=== PATIENT | female | born 1935 | race Caucasian/White ===

== ENCOUNTER → 2016-10-23 | Outpatient (CLI) | payer MEDICARE, OTHER | END | disposition home or self-care (01) | LOC: GMAB 14:15 | PROVIDERS: ATTEND Family Medicine | DX: D63.1 Anemia in chronic kidney disease (principal) ==

== ENCOUNTER → 2017-04-09 | Outpatient (CLI) | payer MEDICARE, OTHER | END | disposition home or self-care (01) | LOC: GMAB 10:28 | PROVIDERS: ATTEND Family Medicine | DX: D63.1 Anemia in chronic kidney disease (principal); E03.9 Hypothyroidism, unspecified ==

== ENCOUNTER → 2017-04-09 | Outpatient (CLI) | payer MEDICARE, OTHER | END | disposition home or self-care (01) | LOC: GMAB 16:22 | PROVIDERS: ATTEND Family Medicine | DX: R06.02 Shortness of breath (principal) ==

== ENCOUNTER → 2017-06-12 | Outpatient (CLI) | payer MEDICARE, OTHER | LOC: RESP 06-11 11:51 | PROVIDERS: ATTEND Internal Medicine Cardiovascular Disease | DX: R53.1 Weakness (principal) ==

== ENCOUNTER → 2017-11-18 | Outpatient (CLI) | payer MEDICARE, OTHER | LOC: GMAB 16:52 | PROVIDERS: ATTEND Family Medicine | DX: D64.9 Anemia, unspecified (principal) ==

== ENCOUNTER → 2018-03-25 | Outpatient (CLI) | payer MEDICARE, OTHER | LOC: GMAE 14:35 | PROVIDERS: ATTEND Family Medicine | DX: D64.9 Anemia, unspecified (principal); E03.9 Hypothyroidism, unspecified ==

== ENCOUNTER 2018-08-27 16:15 | Inpatient (IN) | payer MEDICARE, OTHER ==
[2018-08-27] MEDS ORDERED: HYDROcodone 5MG/APAP 325MG 1 EA TAB PO ONE (17:15)
--- NOTE | 2018-08-27 17:26 | ED.PDOC ---
History of Present Illness - General Chief Complaint: Fever Stated Complaint: knee swelling, fever Time Seen by Provider: 08/27/18 16:35 Source: patient, family Exam Limitations: no limitations - History of Present Illness Initial Comments: PT SENT OVER FROM THE CLINIC FOR EVALUATION OF FEVER, COUGH AND KNEE SWELLING. PT REPORTS HAVING A COUGH PRODUCTIVE OF YELLOW AND GREEN SPUTUM FOR THE PAST WEEK ASSOCIATED WITH INTERMITTENT FEVER. PT REPORTS INTERMITTENT SHORTNESS OF BREATH. SHE REPORTS L KNEE SWELLING AND PAIN THAT BEGAN AFTER SHE TWISTED IT ATTEMPTING TO ROLL OVER IN BED 2 DAYS AGO. PT DENIES CHEST PAIN. Timing/Duration: 1 week Severity: moderate Improving Factors: immobilization, rest Worsening Factors: movement Associated Symptoms: cough, fever/chills, shortness of breath, weakness Allergies/Adverse Reactions: Allergies Ciprofloxacin [From Cipro] Allergy (Verified 08/27/18 16:42) Ofloxacin [From Floxin] Allergy (Verified 08/27/18 16:42) Review of Systems - Review of Systems Constitutional: States: chills, fever EENTM: States: nose congestion. Denies: throat pain Respiratory: States: cough, short of breath Cardiology: Denies: chest pain, palpitations Gastrointestinal/Abdominal: Denies: nausea, vomiting Genitourinary: Denies: dysuria, frequency Musculoskeletal: States: joint pain, joint swelling Skin: Denies: dryness, lesions Neurological: Denies: headache, numbness Past Medical History (General) - Patient Medical History Hx Thyroid Disease: Yes Surgical History: appendectomy, Hysterectomy - Vaccination History Hx Tetanus, Diphtheria Vaccination: Yes Hx Influenza Vaccination: No Hx Pneumococcal Vaccination: Yes - Social History Hx Tobacco Use: No Hx Alcohol Use: Yes Family Medical History - Family History Mother Family History: Unknown Physical Exam - Physical Exam General Appearance: Alert, Comfortable, No apparent distress, Well Developed, Well Groomed, Well Hydrated Eye Exam: bilateral normal Ears, Nose, Throat: hearing grossly normal Neck: non-tender, full range of motion Respiratory: lungs clear, normal breath sounds, no respiratory distress Cardiovascular/Chest: regular rate, rhythm, no edema Gastrointestinal/Abdominal: non tender, soft Back Exam: normal inspection, no CVA tenderness Extremity: other - MODERATE SWELLING AND TTP OF THE LEFT KNEE JOINT. NO SIGNIFICANT ERYTHEMA NOTED. MILDY INCREASED WARMTH. Neurologic: alert, normal mood/affect, oriented x 3 Skin Exam: normal color, warm/dry Progress - Progress Progress: 08/27/18 18:32 PT RESTING COMFORTABLY ON RE-EVAL. LABS AND DIAGNOSTICS DISCUSSED. - Results/Orders Results/Orders: Laboratory Tests 08/27/18 08/27/18 17:51 17:51 WBC 8.9 RBC 3.65 L Hgb 11.0 L Hct 32.9 L MCV 90.1 MCH 30.1 MCHC 33.6 RDW 14.0 Plt Count 299 MPV 7.6 Absolute Neuts (auto) 7.30 H Absolute Lymphs (auto) 0.60 L Absolute Monos (auto) 1.00 H Absolute Eos (auto) 0.00 Absolute Basos (auto) 0.00 Neutrophils % 81.1 H Lymphocytes % 6.8 L Monocytes % 11.6 H Eosinophils % 0.2 L Basophils % 0.3 Sodium 130 L Potassium 3.9 Chloride 96 L Carbon Dioxide 23 Anion Gap 14.9 BUN 23 H Creatinine 0.93 BUN/Creatinine Ratio 24.7 H Random Glucose 98 Serum Osmolality 264.5 L Calcium 8.4 Total Bilirubin 0.7 AST 31 ALT 27 Alkaline Phosphatase 83 Serum Total Protein 6.7 Albumin 3.2 Globulin 3.5 Albumin/Globulin Ratio 0.9 L - EKG/XRAY/CT EKG: Sinus - @85BPM, NL AXIS, RBBB, no ST T wave changes - NO OLD FOR COMPARISON XRAY: chest - BILATERAL INFILTRATES VS ATELECTASIS, PER RAD - Additional EKG/XRAY/Consults XRAY #2: knee - SMALL SUPRAPATELLAR EFFUSION, OSTEOARTHRITIS, PER RAD Departure - Departure Clinical Impression: Bilateral pneumonia, Degenerative arthritis of left knee, Hyponatremia with decreased serum osmolality Time of Disposition: 18:34 Disposition: Admit Patient Condition: Fair Decision To Admit - Decistion To Admit Decision to Admit Reason: Admit from ER Decision to Admit Date: 08/27/18 Decision to Admit Time: 18:34 - CASE DISCUSSED WITH RICO MARLEY NP WHO AGREES TO ADMIT
--- NOTE | 2018-08-27 18:12 | RAD ---
EXAM DESCRIPTION: Knee,Left 2 or More Views CLINICAL HISTORY: 83 years Female knee swelling and pain COMPARISON: None TECHNIQUE: AP and lateral views of the left knee are obtained. FINDINGS: OSSEOUS: There is no evidence of acute fracture or osteolytic/osteoblastic lesions. There is severe narrowing of the lateral compartment and moderate narrowing of the medial compartment. There is severe tricompartmental marginal osteophytosis. There is no evidence of subluxation/dislocation. There is no evidence of marginal erosive changes to suggest an inflammatory arthritis. SOFT TISSUE: There is no significant soft tissue swelling or mass. No evidence of significant soft tissue calcifications. No radiopaque foreign bodies. There is a small suprapatellar effusion IMPRESSION: Tricompartmental primary osteoarthritis with a small suprapatellar effusion. Remainder of findings as described above. Electronically signed by: Nancy Fountain MD 08/27/2018 6:[address] [facility]
--- NOTE | 2018-08-27 18:16 | RAD ---
EXAM DESCRIPTION: Chest,1 View CLINICAL HISTORY: 83 years Female cough/sob COMPARISON: Change from TECHNIQUE: A single frontal projection of the chest is obtained. FINDINGS: Heart: Allowing for magnification factors related to AP portable technique heart is mildly enlarged. Vasculature: There is mild tortuosity and atherosclerosis of the aorta. The pulmonary vascularity is normal. Mediastinum: Unremarkable otherwise. No evidence of mass or adenopathy. Lungs: Alveolar opacification in the right perihilar area and right lower lung partially obscures the right heart border [] There is also a small patchy area of alveolar opacification in the left upper lobe Pleural spaces: There are no pleural effusions. There are no pneumothoraces. Osseous structures: There is no evidence of acute fracture, osseous destruction or osteoblastic lesions. There are diffuse enthesopathic changes including a rolling pattern of ossification in the thoracic spine consistent with diffuse idiopathic skeletal hyperostosis (DISH). Narrowing of the acromiohumeral spaces with superior positioning of the humeri in the glenoid fossae suggest rotator cuff degeneration. There is also severe narrowing of the glenohumeral and acromioclavicular joints indicating primary osteoarthritis. Tubes and catheters: None. Upper abdomen: No acute findings. [] IMPRESSION: Atelectasis and/or pneumonia in the right lower lung and left upper lobe. Recommend follow-up to resolution. [] Remainder of findings as described above. Electronically signed by: Nancy Fountain MD 08/27/2018 6:15 PM [employer]
[2018-08-27] MEDS ORDERED: AZITHROMYCIN IV 500 MG in SODIUM CHLORIDE 0.9% 250ML 250 ML IVPB ONE (18:24)
[2018-08-27] MEDS ORDERED: cefTRIAXone SODIUM 1 GM in SODIUM CHL 0.9% 50ML MIN-BAG+ 50 ML IVPB ONE (18:24)
--- NOTE | 2018-08-27 18:49 | HP ---
SUPERVISING PHYSICIAN: Topher Lagunas M.D. CHIEF COMPLAINT: Fever and knee pain. HISTORY OF PRESENT ILLNESS: Ms. Wright is an 83 year-old female patient of Dr. Lagunas'ninoska that was sent from the clinic to the [facility] today for evaluation of a fever, cough and her knee swelling. The patient reports that in the last week she has been fairly sick with a fever and congestion. She started using some [id number] remedies such as Vitamin C, but progressively worsened. She noted that her son does live with her. He had similar symptoms. She initially thought it was a cold but she started producing some sputum that had become more purulent in nature with increasing weakness and decrease in appetite. She also notes that due to the weakness she had some difficulty rolling over in bed and had twisted her left knee which resulted in some swelling and some pain. She normally uses a walker or a cane. In the [facility] initial laboratory studies showed she had a normal white count at 8,900 with a left shift. Chemistries showed a mildly low sodium at 130 with BUN of 23, otherwise liver functions were within normal limits as well as other electrolytes. Chest x-ray in the [facility] per radiology interpretation of single view chest demonstrated opacification of the right perihilar area and right lower lung as well as atelectasis noted to the left upper lobe concerning for pneumonia. She was started on antibiotics after blood cultures were completed which included Rocephin and azithromycin and given some breathing treatments. The patient now is going to be admitted to the Medical/Surgical floor for further treatment and evaluation of community acquired pneumonia involving the right lower lobe as well as concern for left upper lobe pneumonia. Her left knee was x-rayed in the [facility] which showed to be without any acute findings other than some mild effusion but no fractures. PAST MEDICAL HISTORY: 1. Hypertension. 2. Hypothyroidism PAST SURGICAL HISTORY: 1. Appendectomy. 2. Partial hysterectomy. 3. Bladder suspension. 4. Bilateral bunionectomy. HOME MEDICATIONS: 1. Vitamin C 500 mg daily. 2. Vitamin B12 1,000 mcg daily. 3. Antionette root 550 mg daily. 4. Lasix 20 mg p.r.n. 5. Synthroid 0.15 mg daily. 6. Amlodipine 2.5 mg daily. ALLERGIES: CIPROFLOXACIN AND OFLOXACIN. FAMILY HISTORY: Father at age 65 secondary to a heart attack. Mother at age 86. She had a history fo heart failure and dementia. She has 2 siblings, one sister alive who has rheumatoid arthritis, one sister who had complications to congestive heart failure. She has 1 son and 1 daughter, all healthy. SOCIAL HISTORY: The patient works in the [employer] in [employer]. She has never smoked tobacco. She does partake of a mixed drink on occasion throughout the week. She lives in [place] by herself as she is . REVIEW OF SYSTEMS: CONSTITUTIONAL: Positive for chills, fever, general malaise. Negative for any unintentional weight loss. HEENT: Positive for nasal congestion. Negative for sore throat, ear ache. RESPIRATORY: Positive for cough, worsening shortness of breath, productive purulent sputum. CARDIOVASCULAR: Negative for any chest pains, palpitations or syncopal episodes. GASTROINTESTINAL: Negative for any nausea, vomiting, diarrhea, constipation or abdominal pains. GENITOURINARY: Negative for any dysuria, hematuria, polyuria. MUSCULOSKELETAL: Positive for joint pain, joint swelling of the left knee as noted in History of Present Illness. SKIN: Negative for any dryness, lesions or rashes. NEUROLOGIC: Negative for any headaches, numbness, seizure activity, syncopal episodes, ataxia. PHYSICAL EXAMINATION: VITAL SIGNS: On admission to the Emergency Room she had a low-grade temperature of 99.5, pulse 97, blood pressure 133/70, respirations 20, satting 95% on room air. Admission weight 58.4 kg. GENERAL: The patient is frail and elderly. Appears to be well nourished but somewhat dehydrated. She does appear to be in no acute distress at time of exam. HEENT: Tympanic membranes were bilaterally intact. She has bilateral hearing loss. Mucosal membranes were pink with dry mucosal membranes. NECK: Supple, non-tender with full range of motion. No jugular venous distention. CHEST: Notable for rhonchi and inspiratory wheezing more prominent on the right middle lung epstein with faint coarseness heard to the left and diminished bilaterally. CARDIOVASCULAR: Regular rate and rhythm without appreciable murmurs, gallops, or rubs. ABDOMEN: Soft, non-tender. Positive bowel sounds. EXTREMITIES: Without any clubbing, cyanosis or edema other than the moderate swelling and tenderness to palpation of the left knee joint, but no erythema is noted. NEUROLOGIC: She is alert and oriented time three. SKIN: [place], warm and dry with no lesions or rashes noted. LABORATORY STUDIES: White count showed to be at 8,900, hemoglobin 11, hematocrit 32.9, platelet count 299,000. Differential did show a left shift. Chemistries showed low sodium st 130, potassium 3.9, BUN 23, creatinine 0.93. Liver functions showing to be within normal limits. Urinalysis showed 100 protein, 15 ketones, trace intact blood with positive nitrites, small amount of bilirubin, small amount of leukocyte esterase with microscopic showing 3 to 5 RBCs, 10 to 20 WBCs, 5 to 10 epithelials, 3+ bacteria and moderate amount of mucous. MICROBIOLOGY: Urine culture is pending. Blood culture is pending. Sputum culture is pending. RADIOLOGY: Chest x-ray in the Emergency Department prior to admission per radiology interpretation of a single view chest showed atelectasis and/or pneumonia in the right lower lung and left upper lobe. Left knee x-ray showed tricompartmental primary osteoarthritis with small peripatellar effusion. Please see that report for full details. ASSESSMENT: 1. Bilateral pneumonia community acquire involving the right lower lobe and left upper lobe. 2. Urinary tract infection. 3. Moderate dehydration. 4. Electrolyte imbalance with hyponatremia. 5. History of hypertension. 6. Hypothyroidism on supplementation. PLAN: The patient is going to be admitted to the Medical/Surgical floor for ongoing treatment of both urinary tract infection and community acquired pneumonia. She was started on azithromycin and Rocephin. She will be on aggressive pulmonary hygiene with DuoNeb q.i.d. treatments, chest percussive therapy and Guaifenesin. Will anticipate her length of stay to be at least 2 to 3 days. Will go ahead and resume her home medications as those have been updated and verified. She will be on DVT prophylaxis per protocol. Will go ahead and replace her sodium with some low rate IV fluids and recheck labs in the morning. Until she can transition to outpatient management will continue to monitor and treat as needed. #[id number] [facility]
[2018-08-27] MEDS ORDERED: SODIUM CHL 0.9% 50ML MIN-BAG+ 50 ML IVPB ONE (19:03)
[2018-08-27] MEDS ORDERED: cefTRIAXone SODIUM 1 GM VIAL ONE (19:03)
[2018-08-27] MEDS ORDERED: ONDANSETRON INJ 4 MG/2 ML VIAL IV PRN (19:15)
[2018-08-27] MEDS ORDERED: HYDROcodone 5MG/APAP 325MG 1 EA TAB PO PRN (19:15)
[2018-08-27] MEDS ORDERED: ACETAMINOPHEN 325 MG TAB PO PRN (19:15)
[2018-08-27] MEDS ORDERED: ALBUTEROL SULFATE 2.5 MG/3 ML VIAL NEB PRN (19:15)
[2018-08-27] MEDS ORDERED: POTASSIUM CHLORIDE 10 MEQ TAB PO ONE (19:25)
[2018-08-27] MEDS ORDERED: ATORVASTATIN 20 MG TAB PO ONE (19:25)
[2018-08-27] MEDS ORDERED: SODIUM CHLORIDE 0.9% 250ML 250 ML ONE (19:36)
[2018-08-27] MEDS ORDERED: AZITHROMYCIN IV 500 MG VIAL IVPB ONE (19:36)
[2018-08-27] MEDS ORDERED: IPRATROPIUM/ALBUTEROL 3 ML VIAL INH SCH (20:00)
[2018-08-27] MEDS: IV SET AND CAP CHANGE INJ INJ SCH (20:02)
[2018-08-27] MEDS: guaiFENesin ER TAB 600 MG TAB PO SCH (20:02)
[2018-08-27] MEDS: ENOXAPARIN SODIUM 40 MG/0.4 ML SYG SUBCU SCH (21:01)
[2018-08-28] MEDS: PANTOPRAZOLE SODIUM IV 40 MG VIAL IV SCH (06:15)
[2018-08-28] MEDS ORDERED: IPRATROPIUM/ALBUTEROL 3 ML VIAL NEB ONE (07:47)
[2018-08-28] MEDS: IPRATROPIUM/ALBUTEROL 3 ML VIAL NEB SCH ×4 (08:05→21:12)
[2018-08-28] MEDS ORDERED: SODIUM CHLORIDE 0.9% 250ML 250 ML ONE (08:06)
[2018-08-28] MEDS ORDERED: SODIUM CHL 0.9% 50ML MIN-BAG+ 50 ML IVPB ONE (08:06)
[2018-08-28] MEDS ORDERED: AZITHROMYCIN IV 500 MG VIAL IVPB ONE (08:07)
[2018-08-28] MEDS ORDERED: cefTRIAXone SODIUM 1 GM VIAL ONE (08:07)
--- NOTE | 2018-08-28 09:00 | RAD ---
EXAM DESCRIPTION: Chest,1 View CLINICAL HISTORY: 83 years Female Pneumonia COMPARISON: Portable chest 08/27/2016 TECHNIQUE: A single frontal projection of the chest is obtained. FINDINGS: Heart: Loss of silhouetting of the right heart border precludes optimal assessment of cardiac size. . Vasculature: There is mild atherosclerosis and tortuosity of the aorta. The pulmonary vascularity is normal. Mediastinum: Unremarkable otherwise. No evidence of mass or adenopathy. Lungs: There has been no significant change in alveolar opacification in the left upper lung laterally as well as in the right lower lung medially consistent with atelectasis and/or pneumonia. [] Pleural spaces: There are no pleural effusions. There are no pneumothoraces. Osseous structures: There is no evidence of acute fracture, osseous destruction or osteoblastic lesions. There are diffuse enthesopathic changes including a rolling pattern of ossification in the thoracic spine consistent with diffuse idiopathic skeletal hyperostosis (DISH). Narrowing of the acromiohumeral spaces with superior positioning of the humeri in the glenoid fossae suggest rotator cuff degeneration. Joint space narrowing and marginal osteophytosis in the acromioclavicular and glenohumeral joints is consistent with primary osteoarthritis. [] Tubes and catheters: None. Upper abdomen: No acute findings. [] IMPRESSION: There has been no significant change in alveolar opacification in the left upper lung laterally as well as in the right lower lung medially consistent with atelectasis and/or pneumonia. [] Remainder of findings as described above. Electronically signed by: Nancy Fountain MD 08/28/2018 8:59 AM [employer]INE ENGINE MECHANIC
[2018-08-28] MEDS: cefTRIAXone SODIUM 1 GM in SODIUM CHL 0.9% 50ML MIN-BAG+ 50 ML IVPB SCH (09:13)
[2018-08-28] MEDS: amLODIPine BESYLATE 5 MG TAB PO SCH (09:13)
[2018-08-28] MEDS: LEVOTHYROXINE SODIUM 0.075 MG TAB PO SCH (09:13)
[2018-08-28] MEDS: guaiFENesin ER TAB 600 MG TAB PO SCH ×2 (09:14→21:11)
[2018-08-28] MEDS: AZITHROMYCIN IV 500 MG in SODIUM CHLORIDE 0.9% 250ML 250 ML IVPB SCH (09:51)
[2018-08-28] MEDS: SODIUM CHLORIDE 0.9% (FLUSH) 10 ML SYG IV PRN (21:11)
[2018-08-28] MEDS: ENOXAPARIN SODIUM 40 MG/0.4 ML SYG SUBCU SCH (21:11)
--- NOTE | 2018-08-28 22:04 | PN ---
DATE: 08/28/18 SUPERVISING PHYSICIAN: Topher Lagunas M.D. SUBJECTIVE: The patient reports that she feels a little bit better today but still has a really significant cough with copious amounts of sputum. She has been afebrile. Says she has a little bit of shortness of breath but not anywhere near what it was before she came in. OBJECTIVE: VITAL SIGNS: Temperature 98.6, pulse 86, blood pressure 92/57, respirations 20, satting 98% on nasal cannula on 2 liters at rest. I's and O's show a positive balance of 130 with 380 in, 250 out. Weight is 59.1 kg. CHEST: Lung sounds are notably coarse with some faint inspiratory wheezing heard on the right more than the left and both sides are diminished. HEART: Regular rate and rhythm. ABDOMEN: Soft, non-tender. Positive bowel sounds. EXTREMITIES: Without any clubbing, cyanosis or edema. NEUROLOGIC: She is alert and oriented time three. LABORATORY: White count 7,500, hemoglobin 10.2, hematocrit 30.4, platelet count 280,000. Chemistries show an improving sodium at 132, BUN 23, creatinine 0.97. Urinalysis did show 100 protein, trace of intact blood with 14 ketones, positive nitrites, small amount of bilirubin, small amount of leukocyte esterase with RBCs on microscopic being 3 to 5, WBCs 10 to 20 5 to 10 epithelials, 3+ bacteria and moderate amount of mucous. MICROBIOLOGY: Sputum culture is pending. Blood cultures remain negative at 24 hours. Urine culture is pending. RADIOLOGY: Repeat chest x-ray today per radiology interpretation shows no significant change in the alveolar opacification of the left upper lateral lung as well as right lower lung medially consistent with atelectasis and/or pneumonia. ASSESSMENT: 1. Bilateral pneumonia community acquired requiring aggressive pulmonary hygiene. 2. Urinary tract infection with cultures pending. 3. Moderate dehydration, improving with fluids. 4. Electrolyte imbalance with a persistent hyponatremia, although showing improvement. 5. History of hypertension showing to be stable. 6. Hypothyroidism on supplementation. PLAN: Will continue with treatment with aggressive pulmonary hygiene and toiletry with combined DuoNeb treatments. She remains on azithromycin and Rocephin. She continues to have chest percussive therapy and Guaifenesin which is resulting in some good response. I anticipate probably that she will be here at least until Thursday morning given her advanced age and significant findings on radiographic studies indicating significant pneumonia process. Will continue with DVT prophylaxis. Will again continue with IV fluids in efforts to stabilize her sodium. Until she can transition to outpatient management will continue to monitor and treat as needed. #[id number] [facility]
[2018-08-29] MEDS: PANTOPRAZOLE SODIUM IV 40 MG VIAL IV SCH (06:29)
[2018-08-29] MEDS: SODIUM CHLORIDE 0.9% (FLUSH) 10 ML SYG IV PRN ×2 (06:30→21:04)
[2018-08-29] MEDS: LEVOTHYROXINE SODIUM 0.075 MG TAB PO SCH (06:31)
[2018-08-29] MEDS ORDERED: SODIUM CHL 0.9% 50ML MIN-BAG+ 50 ML IVPB ONE (08:21)
[2018-08-29] MEDS ORDERED: cefTRIAXone SODIUM 1 GM VIAL ONE (08:21)
[2018-08-29] MEDS: IPRATROPIUM/ALBUTEROL 3 ML VIAL NEB SCH ×4 (08:21→19:43)
[2018-08-29] MEDS ORDERED: SODIUM CHLORIDE 0.9% 250ML 250 ML ONE (08:21)
[2018-08-29] MEDS ORDERED: AZITHROMYCIN IV 500 MG VIAL IVPB ONE (08:22)
--- NOTE | 2018-08-29 08:46 | RAD ---
EXAM DESCRIPTION: Chest,1 View CLINICAL HISTORY: 83 years Female pneumoniia COMPARISON: Portable chest 08/28/2018 TECHNIQUE: A single frontal projection of the chest is obtained. FINDINGS: Heart: Allowing for magnification factors related to AP portable technique and large body habitus , the heart is mildly enlarged. Vasculature: There is mild atherosclerosis and [] tortuosity of the aorta. The pulmonary vascularity is normal. Mediastinum: Unremarkable otherwise. No evidence of mass or adenopathy. Lungs: Previously demonstrated alveolar opacities in the left upper lobe, right perihilar area and right lower lobe medially persists but have significantly improved, i.e. partially cleared. Pleural spaces: Minimal left pleural fluid persists without significant right pleural fluid. There are no pneumothoraces. Osseous structures: There is no evidence of acute fracture, osseous destruction or osteoblastic lesions. There are diffuse enthesopathic changes including a rolling pattern of ossification in the thoracic spine consistent with diffuse idiopathic skeletal hyperostosis (DISH). There are severe degenerative changes in the shoulders bilaterally. There is severe narrowing of the left acromiohumeral space with superior migration of the humeral head relative to the glenoid fossa which is consistent with rotator cuff degeneration. Tubes and catheters: None. Upper abdomen: No acute findings. . IMPRESSION: Previously demonstrated alveolar opacities in the left upper lobe, right perihilar area and right lower lobe medially persists but have significantly improved, i.e. partially cleared.[] Remainder of findings as described above. Electronically signed by: Nancy Fountain MD 08/29/2018 8:44 AM [employer]AIL [employer] PROFESSIONAL
[2018-08-29] MEDS: amLODIPine BESYLATE 5 MG TAB PO SCH (08:51)
[2018-08-29] MEDS: guaiFENesin ER TAB 600 MG TAB PO SCH ×2 (08:52→21:04)
[2018-08-29] MEDS: cefTRIAXone SODIUM 1 GM in SODIUM CHL 0.9% 50ML MIN-BAG+ 50 ML IVPB SCH (08:52)
[2018-08-29] MEDS: AZITHROMYCIN IV 500 MG in SODIUM CHLORIDE 0.9% 250ML 250 ML IVPB SCH (10:38)
--- NOTE | 2018-08-29 19:40 | PN ---
DATE: 08/29/18 SUPERVISING PHYSICIAN: Topher Lagunas M.D. SUBJECTIVE: The patient feels like she is progressing well clinically. She was able to sleep last night. She has had less shortness of breath but continues with a significant amount of coughing. She has been afebrile. OBJECTIVE: VITAL SIGNS: Temperature 98.8, pulse 78, blood pressure 112/68, respirations 18, satting 95% on room air. Weight is 59.0 kg. CHEST: Lung sounds today are slightly improved. She still has some rhonchi heard on the left today and she remains diminished bilaterally, but no wheezing is noted. HEART: Regular rate and rhythm. ABDOMEN: Soft, non-tender with positive bowel sounds. EXTREMITIES: Without any edema. NEUROLOGIC: She is alert and oriented times three. LABORATORY: Chemistries show a persistent hyponatremia at 132, BUN 19, creatinine 0.97. MICROBIOLOGY: Sputum culture is pending. Blood cultures remain negative at 24 hours. Urine culture is pending with preliminary showing greater than 100,000 of gram negative bacilli. RADIOLOGY: Chest x-ray today per radiology interpretation of a single view chest shows previously demonstrated alveolar opacities in the left upper lobe with the right perihilar area and right lower lobe medially consistent persistent but significantly improved, i.e., partially cleared. ASSESSMENT: 1. Community acquired pneumonia bilateral left upper lobe and right lower lobe currently on Rocephin and azithromycin. 2. Urinary tract infection with gram negative bacilli with culture and sensitivity final pending. 3. Moderate dehydration, improving with fluids. 4. Electrolyte imbalance with a persistent hyponatremia, likely chronic but with some mild exacerbation due to underlying pneumonia. 5. History of hypertension showing to be stable. 6. Hypothyroidism on supplementation. PLAN: Will continue with current antibiotic therapy with Rocephin and azithromycin and await final culture results of the urinalysis. She is doing well with Guaifenesin and aggressive pulmonary bronchial hygiene, including chest percussive therapy. Hopefully be able to discharge her tomorrow. Her lab has been fairly stable. Will hold off repeating those in the morning. Her chest x-ray continues to show clearance, therefore will hold off on repeat tomorrow as well. She has been saline locked. Will continue to monitor and treat as necessary until discharge. #[id number] [facility]
[2018-08-29] MEDS: ENOXAPARIN SODIUM 40 MG/0.4 ML SYG SUBCU SCH (21:04)
[2018-08-30] MEDS: PANTOPRAZOLE SODIUM IV 40 MG VIAL IV SCH (06:03)
[2018-08-30] MEDS: SODIUM CHLORIDE 0.9% (FLUSH) 10 ML SYG IV PRN (06:03)
[2018-08-30] MEDS: LEVOTHYROXINE SODIUM 0.075 MG TAB PO SCH (06:04)
[2018-08-30] MEDS ORDERED: SODIUM CHL 0.9% 50ML MIN-BAG+ 50 ML IVPB ONE (07:23)
[2018-08-30] MEDS ORDERED: SODIUM CHLORIDE 0.9% 250ML 250 ML ONE (07:23)
[2018-08-30] MEDS ORDERED: AZITHROMYCIN IV 500 MG VIAL IVPB ONE (07:24)
[2018-08-30] MEDS ORDERED: cefTRIAXone SODIUM 1 GM VIAL ONE (07:24)
[2018-08-30] MEDS: IPRATROPIUM/ALBUTEROL 3 ML VIAL NEB SCH ×4 (08:42→19:29)
[2018-08-30] MEDS: amLODIPine BESYLATE 5 MG TAB PO SCH (08:44)
[2018-08-30] MEDS: guaiFENesin ER TAB 600 MG TAB PO SCH ×2 (08:44→20:31)
[2018-08-30] MEDS: cefTRIAXone SODIUM 1 GM in SODIUM CHL 0.9% 50ML MIN-BAG+ 50 ML IVPB SCH (08:45)
[2018-08-30] MEDS ORDERED: MAGNESIUM HYDROXIDE 30 ML UD PO PRN (09:39)
[2018-08-30] MEDS: AZITHROMYCIN IV 500 MG in SODIUM CHLORIDE 0.9% 250ML 250 ML IVPB SCH (09:43)
--- NOTE | 2018-08-30 15:08 | PN ---
COLLABORATING PHYSICIAN: Jacky Lawler MD DATE: 08/30/18 SUBJECTIVE: Ms. Wright is doing fairly well. She is laying in bed at the moment without any complaints of shortness of breath. She does have some oxygen on and I have been told that she desaturates to the high 80s, however, she is not short of breath. She is able to walk around more and feels somewhat better than her admission. OBJECTIVE: VITAL SIGNS: Blood pressure 125/70. Heart rate 83. Respiratory rate 16. Temperature 98.2. Oxygen saturation 97%. GENERAL: Ms. Wright is an 83-year-old female in no active distress at this time. NEUROLOGIC: Alert and oriented. LUNGS: Clear to auscultation bilaterally. CARDIOVASCULAR: Regular rate and rhythm. Normal S1, S2. ABDOMEN: Soft. Positive bowel sounds. EXTREMITIES: Lower extremities with no edema. Pulses 2+. Capillary refill is less than 2 seconds. LABORATORY: Sputum cultures remain negative. Urine shows gram negative bacilli with final identification pending. ASSESSMENT: 1. Community acquired bilateral pneumonia in the left upper lobe and right lower lobe, which is improving. 2. Urinary tract infection, which is identified as gram negative bacilli with no final identification or sensitivity available as of yet. 3. Moderate dehydration, improved. 4. Electrolyte imbalances, improved. 5. Hypoxia via oximetry with O2 saturation in the high 80s at times, but most of the time stays in the 90s. 6. History of hypertension, stable. 7. Hypothyroidism. PLAN: We will continue the current antibiotics as the patient is showing improvement. Hopefully, we will get a final identification prior to discharge, but this may not happen I understand. She is clinically doing a lot better. I wanted to monitor her off of oxygen, but she does desaturate into the high 80s. I imagine some of this is chronic and not due to an acute process. We will need to consider home O2 as she improves. We will recheck her labs in the morning as well. [facility][id number] [facility]
[2018-08-30] MEDS: IV SET AND CAP CHANGE INJ INJ SCH (20:30)
[2018-08-30] MEDS: ENOXAPARIN SODIUM 40 MG/0.4 ML SYG SUBCU SCH (20:31)
[2018-08-31] MEDS: LEVOTHYROXINE SODIUM 0.075 MG TAB PO SCH (06:10)
[2018-08-31] MEDS: PANTOPRAZOLE SODIUM IV 40 MG VIAL IV SCH (06:10)
[2018-08-31] MEDS ORDERED: SODIUM CHLORIDE 0.9% 250ML 250 ML ONE (07:11)
[2018-08-31] MEDS ORDERED: cefTRIAXone SODIUM 1 GM VIAL ONE (07:12)
[2018-08-31] MEDS ORDERED: SODIUM CHL 0.9% 50ML MIN-BAG+ 50 ML IVPB ONE (07:12)
[2018-08-31] MEDS ORDERED: AZITHROMYCIN IV 500 MG VIAL IVPB ONE (07:13)
[2018-08-31] MEDS: IPRATROPIUM/ALBUTEROL 3 ML VIAL NEB SCH (07:54)
[2018-08-31] MEDS: cefTRIAXone SODIUM 1 GM in SODIUM CHL 0.9% 50ML MIN-BAG+ 50 ML IVPB SCH (09:21)
[2018-08-31] MEDS: guaiFENesin ER TAB 600 MG TAB PO SCH (09:22)
[2018-08-31] MEDS: amLODIPine BESYLATE 5 MG TAB PO SCH (09:22)
[2018-08-31] MEDS: SODIUM CHLORIDE 0.9% (FLUSH) 10 ML SYG IV PRN (09:22)
[2018-08-31] MEDS: AZITHROMYCIN IV 500 MG in SODIUM CHLORIDE 0.9% 250ML 250 ML IVPB SCH (09:51)
[2018-08-31 11:08] VITALS: BP 129/61; TEMP 98.2; O2SAT 97
--- NOTE | 2018-08-31 15:36 | DS ---
ADMISSION DIAGNOSIS: 1. Right lower lobe and left upper lobe pneumonia. 2. Urinary tract infection. 3. Moderate dehydration. 4. Electrolyte imbalance with hyponatremia. 5. History of hypertension. 6. Hypothyroidism on supplementation. DISCHARGE DIAGNOSIS: 1. Bilateral community acquired pneumonia of the left upper lobe and right lower lobe which is improving. 2. Urinary tract infection which is gram negative bacilli with no final identification or sensitivities available on discharge. However, clinically she is improved. 3. Moderate dehydration, improved. 4. Electrolyte imbalance, improved. 5. Hypoxia which is likely chest. 6. History of hypertension, stable. 7. Hypothyroidism. HOSPITAL COURSE: This is an 83 year-old female who came to the Emergency Room with fever, coughing and left knee swelling. She has been sick with fever and congestion over the last week prior to admission. She took some [id number] remedies such as Vitamin C but continued to worsen. At first her sputum production was clear but became more purulent in nature. She had weakness and decreased appetite. She was put on nasal cannula 2 liters. She apparently also twisted her left knee and had some pain and tenderness. She had a normal white count. Sodium was low at 130. Chest x-ray showed right lower lobe pneumonia and the left upper lobe consolidation. She was started on antibiotics. Throughout the admission she step-najera improved. Chest x-ray showed improvement of the consolidations and the urinary tract infection showed gram negative bacilli which we are still awaiting final verification as well as sensitivities, however, she clinically improved on the antibiotics she was on which were Rocephin and azithromycin. It was also noted that she desaturates at night and with ambulation, she walked in the [place] she desaturated but I feel she probably got a degree of chronic hypoxia mainly at night. Therefore, she is being discharged on home oxygen to utilize as needed. She will be discharged today and I will go ahead an put her on some Ceftin for the next 7 days. She will followup with Dr. Lagunas as an outpatient and all other home medications will be continued at this time. [facility][id number] [facility]
== END 2018-08-31 12:13 | disposition home or self-care (01) | DRG 194 ==
LOC: ER 16:15 → MS 18:47
PROVIDERS: ADMIT Nurse Practitioner; ATTEND Nurse Practitioner Family
DX: J18.1 Lobar pneumonia, unspecified organism (principal); N39.0 Urinary tract infection, site not specified; E87.1 Hypo-osmolality and hyponatremia; E86.0 Dehydration; I10 Essential (primary) hypertension; E03.9 Hypothyroidism, unspecified; M17.12 Unilateral primary osteoarthritis, left knee; Z88.1 Allergy status to other antibiotic agents

== ENCOUNTER → 2018-09-07 | Outpatient (CLI) | payer MEDICARE, OTHER | LOC: GMAE 14:29 | PROVIDERS: ATTEND Family Medicine | DX: R61 Generalized hyperhidrosis (principal); E03.9 Hypothyroidism, unspecified ==

== ENCOUNTER → 2019-05-16 | Outpatient (CLI) | payer MEDICARE, OTHER | LOC: GMAE 14:57 | PROVIDERS: ATTEND Family Medicine | DX: E03.9 Hypothyroidism, unspecified (principal); I10 Essential (primary) hypertension ==

== ENCOUNTER 2020-07-30 05:41 | Day surgery (SDC) | payer MEDICARE, OTHER ==
[2020-07-30] MEDS ORDERED: TROP1%/CYCLOPEN 1%/PHENYL 2.5% DROPS OPHTH ONE (05:42)
[2020-07-30] MEDS ORDERED: MOXIFLOXACIN HCL (OPHTH) 1 DROP DROPS RIGHT_EYE ONE ×2 (09:31→09:49)
[2020-07-30] MEDS ORDERED: PROPARACAINE 0.5% OPHTH SOL 15 ML BTTL RIGHT_EYE ONE ×2 (09:31→09:49)
[2020-07-30] MEDS ORDERED: LIDOCAINE 1% 2 ML VIAL INJ ONE ×2 (09:31→09:49)
[2020-07-30] MEDS ORDERED: TOBRAMYCIN SULF 0.3 % OPHT SOL 1 DROP RIGHT_EYE ONE ×2 (09:32→09:49)
[2020-07-30] MEDS ORDERED: BRIMONIDINE 0.2% OPHTH DROPS RIGHT_EYE ONE ×2 (09:32→09:49)
[2020-07-30] MEDS ORDERED: DEXAMETHASONE 0.1% OPHTH SOL 1 DROP RIGHT_EYE ONE ×2 (09:32→09:49)
[2020-07-30] MEDS ORDERED: MIDAZOLAM INJ 2 MG/2 ML VIAL ONE (09:51)
== END 2020-07-30 11:00 | disposition home or self-care (01) ==
LOC: AMB 05:41
PROVIDERS: ATTEND Ophthalmology
DX: H25.11 Age-related nuclear cataract, right eye (principal); I10 Essential (primary) hypertension; Z79.899 Other long term (current) drug therapy
CPT/HCPCS: 00142; 66984; J2250

== ENCOUNTER 2020-08-13 05:03 | Day surgery (SDC) | payer MEDICARE, OTHER ==
[2020-08-13] MEDS ORDERED: MOXIFLOXACIN HCL (OPHTH) 1 DROP DROPS ONE (06:36)
[2020-08-13] MEDS ORDERED: PROPARACAINE 0.5% OPHTH SOL 15 ML BTTL ONE (06:36)
[2020-08-13] MEDS ORDERED: TROP1%/CYCLOPEN 1%/PHENYL 2.5% DROPS ONE (06:37)
[2020-08-13] MEDS ORDERED: MIDAZOLAM INJ 2 MG/2 ML VIAL ONE (08:09)
[2020-08-13] MEDS ORDERED: BRIMONIDINE 0.2% OPHTH DROPS LEFT_EYE ONE (08:14)
[2020-08-13] MEDS ORDERED: LIDOCAINE 1% 2 ML VIAL INJ ONE (08:14)
[2020-08-13] MEDS ORDERED: PROPARACAINE 0.5% OPHTH SOL 15 ML BTTL LEFT_EYE ONE (08:14)
[2020-08-13] MEDS ORDERED: DEXAMETHASONE 0.1% OPHTH SOL 1 DROP LEFT_EYE ONE (08:14)
[2020-08-13] MEDS ORDERED: MOXIFLOXACIN HCL (OPHTH) 1 DROP DROPS LEFT_EYE ONE (08:14)
[2020-08-13] MEDS ORDERED: TOBRAMYCIN SULF 0.3 % OPHT SOL 1 DROP LEFT_EYE ONE (08:14)
== END 2020-08-13 09:36 | disposition home or self-care (01) ==
LOC: AMB 05:03
PROVIDERS: ATTEND Ophthalmology
DX: H25.12 Age-related nuclear cataract, left eye (principal); I10 Essential (primary) hypertension; Z88.8 Allergy status to other drugs, medicaments and biological substances; Z79.899 Other long term (current) drug therapy
CPT/HCPCS: 00142; 66984; J2250